=== PATIENT | female | born 1950 | race Caucasian/White ===

== ENCOUNTER 2023-05-04 08:11 | Emergency (ER) | payer MEDICARE, BC, SELFPAY ==
[2023-05-04] VITALS (20 sets, daily range): BP systolic 102–161; BP diastolic 41–76; PULSE 55–71; RESP 18; TEMP 36.4; O2SAT 96–100; BMI 23.8
--- NOTE | 2023-05-04 08:38 | CRLHL7_ITS ---
For Patients: As a result of the Century Cures Act, medical imaging exams and procedure reports are released immediately into your electronic medical record. You may view this report before your referring provider. If you have questions, please contact your health care provider. Indication: Chest pain Technique: Chest 2 views Comparison: Chest x-ray 12/11/2013 Findings/Impression: Cardiovascular and mediastinum: Normal heart size with atherosclerotic calcification. Lungs and pleural spaces: No pleural effusion or pneumothorax. Discoid atelectasis left upper lobe. Bones and soft tissues: No significant findings. Dictated by Marlon Olvera MD @ 05/04/2023 9:42:44 AM (Electronically Signed)
--- NOTE | 2023-05-04 08:41 | ED.CHESTPAIN ---
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 With some radiation to the left side of her neck. She felt pressure associated with this, she also feels some shortness of breath when she is walking around over the past few weeks. And the chest pain does intensify when she cleans around her house. By stopping and taking a break the chest pain typically and shortness of breath improves. She did not take any medicines for this today, but in the past has taken aspirin. She feels this may have helped a little bit. She has no personal history of any coronary artery disease, has had previous workup for similar symptoms, which have all been negative she feels that this was greater than 5 years ago. She has had the CT calcium test done at [facility], she says she scored to 75. She does not take medicines for high blood pressure, she has no history of diabetes, she does take a low-dose statin. She has a terrible family history of heart disease with her mother having heart issues in her 50s. She is under lot of stress as her Trip had a stroke last year. And has to care for him. No history of tobacco use or drug use. She is currently pain-free. Two initial COVID vaccinations has not received the booster she did not receive influenza this year. Prior episodes: Yes Onset: during rest Pain location: substernal and left chest Pain radiation: neck and jaw/teeth Severity: moderate Quality: tightness, aching and heaviness Relieving factors: rest Risk Factors Coronary artery disease risk factors: hyperlipidemia and family history of CAD before age 50 Thoracic aortic dissection risk factors: none Related Data On Oral Contraceptives: No Home Medications Medication Instructions Recorded Confirmed atorvastatin 20 mg tablet 20 mg PO QPM 05/04/23 05/04/23 vit C 250 mg-vit E 90 mg-zinc 40 1 tab PO BID 05/04/23 05/04/23 mg-copper 1 ap-ryhirm-unoide capsule (PreserVision AREDS-2) Previous Rx's Medication Instructions Recorded nitroglycerin 0.4 mg sublingual 0.4 mg sublingual Q5-15M PRN chest 05/04/23 tablet pain #14 tabs Allergies Allergy/AdvReac Type Severity Reaction Status Date / Time No Known Drug Allergies Allergy Verified 05/04/23 08:25 Review of Systems Status of ROS Reports: 10 or more systems reviewed and unremarkable except as noted in History and below [facility] Social History Smoking Status: Never smoker Do you use any of these nicotine containing products: None How often do you have a drink containing alcohol: never How often do you have six or more drinks on one occasion: Never AUDIT-C Alcohol total score: 0 Non-prescribed substance use: denies use service: No Exam Narrative Exam Narrative: Patient is speaking normally, no problem with slurring words, oriented x3. Head eyes ears nose and throat exam show equal pupils, no scleral icterus, extraocular muscles are normal, no facial droop, speech is normal, trachea normal and midline. Thyroid normal midline palpable not enlarged. Chest shows symmetrical rise bilaterally, normal auscultation with no wheezes, no increased work of breathing, no overt bruising or lesions seen, no tenderness is noted on auscultation. Heart sounds normal with no S3-S4 no murmurs clicks or gallops. Abdomen shows no obvious masses or hepatosplenomegaly, no organomegaly, bowel sounds are normal in all quadrants. No tenderness is noted also in all quadrants. Upper and lower extremities show normal power, normal range of motion, pulses are normal, sensations normal, fine motor movements are normal, pelvis is stable to rocking. Cervical spine shows normal range of motion, and palpably not tender. Thoracic spine shows normal range of motion, and palpably not tender, lumbar spine shows no tenderness to palpation percussion and is otherwise normal range of motion. Skin shows no rashes, petechiae or eccymosis. Normal carotid upstrokes bilaterally with no bruits. She is thin with a normal BMI Const Vital Signs, click to edit/add: Vital Signs - 24 hr 05/04/23 08:18 05/04/23 08:23 05/04/23 08:24 Temperature 97.6 F Pulse Rate 60 62 Pulse Rate [Right Pulse Oximeter] 60 Respiratory Rate 18 Blood Pressure 150/76 H Blood Pressure [Left Upper Arm] 150/76 H Pulse Oximetry 99 100 99 Oxygen Delivery Method Room Air 05/04/23 08:31 05/04/23 08:32 05/04/23 08:37 Temperature Pulse Rate 71 Pulse Rate [Right Pulse Oximeter] Respiratory Rate Blood Pressure 161/74 H Blood Pressure [Left Upper Arm] Pulse Oximetry 100 100 Oxygen Delivery Method 05/04/23 08:45 05/04/23 09:01 05/04/23 09:02 Temperature Pulse Rate 69 65 68 Pulse Rate [Right Pulse Oximeter] Respiratory Rate Blood Pressure 102/41 L Blood Pressure [Left Upper Arm] Pulse Oximetry 100 96 97 Oxygen Delivery Method 05/04/23 09:15 05/04/23 09:30 05/04/23 09:32 Temperature Pulse Rate 60 59 L 59 L Pulse Rate [Right Pulse Oximeter] Respiratory Rate Blood Pressure 145/63 H Blood Pressure [Left Upper Arm] Pulse Oximetry 100 99 98 Oxygen Delivery Method 05/04/23 09:45 05/04/23 10:00 05/04/23 10:02 Temperature Pulse Rate 63 57 L 55 L Pulse Rate [Right Pulse Oximeter] Respiratory Rate Blood Pressure 145/61 H Blood Pressure [Left Upper Arm] Pulse Oximetry 98 99 99 Oxygen Delivery Method 05/04/23 10:15 05/04/23 10:30 05/04/23 10:45 Temperature Pulse Rate 59 L 58 L 61 Pulse Rate [Right Pulse Oximeter] Respiratory Rate Blood Pressure Blood Pressure [Left Upper Arm] Pulse Oximetry 99 96 100 Oxygen Delivery Method Course Reevaluation(s) Time of Reevaluation #1: 09:48 Reevaluation #1: Molly remains pain-free, I explained to her that so far her troponin, CBC, basic metabolic profile of TS, or all negative. Chest x-ray is normal, EKG shows some very mild changes. I think repeating her troponin, trauma getting the results of the D-dimer, and speaking to Cardiology. She was in agreement with this plan. Time of Reevaluation #2: 11:03 Reevaluation #2: Patient still remains pain-free, I discussed with her, her 2nd troponin being negative, D-dimer negative, and my conversation with Dr. bernal from cardiology at [facility]. Suggestion is for at this point CT angiogram, diagnosis would be chest pain and stable angina. We will put her on daily aspirin, 81 mg and give her prescription for nitroglycerin that she can use she will return here to the emergency department if she has ongoing symptoms worsening crescendo symptoms, or inability to get pain-free. [facility] will set up a CT angiogram in the next few days, call the patient. Vital Signs Vital signs: Initial Vital Signs Temperature 97.6 F 05/04/23 08:18 Temperature Source Temporal Artery Scan 05/04/23 08:18 Pulse Rate 60 05/04/23 08:18 Pulse Rhythm Regular 05/04/23 08:18 Respiratory Rate 18 05/04/23 08:18 Blood Pressure 150/76 H 05/04/23 08:18 Blood Pressure Mean 100 05/04/23 08:18 Blood Pressure Position Semi-Fowlers 05/04/23 08:18 Pulse Oximetry 99 05/04/23 08:18 Oxygen Delivery Method Room Air 05/04/23 08:18 Vital Signs Temperature 97.6 F 05/04/23 08:18 Pulse Rate 60 05/04/23 08:18 Respiratory Rate 18 05/04/23 08:18 Blood Pressure 150/76 H 05/04/23 08:18 Pulse Oximetry 99 05/04/23 08:18 Oxygen Delivery Method Room Air 05/04/23 08:18 Temperature 97.6 F 05/04/23 08:18 Pulse Rate 61 05/04/23 10:45 Respiratory Rate 18 05/04/23 08:18 Blood Pressure 145/61 H 05/04/23 10:02 Pulse Oximetry 100 05/04/23 10:45 Oxygen Delivery Method Room Air 05/04/23 08:18 Medications Administered Medications: Discontinued Medications Generic Name Dose Route Start Last Admin Trade Name Freq PRN Reason Stop Dose Admin Aspirin 324 mg 05/04/23 08:37 05/04/23 08:43 Aspirin 81 Mg Tab.Chew PO 05/04/23 08:38 324 mg ONCE ONE Administration Sodium Chloride 1,000 mls @ 1,000 mls/hr 05/04/23 08:45 05/04/23 10:00 0.9 % Sodium Chloride 1000 Ml IV 05/04/23 09:44 Infused .Q1H ANNALISA Infusion MDM - Chest Pain MDM Narrative Medical decision making narrative: During the evaluation of this patient I considered multiple differential diagnosis is. The life-threatening differential diagnosis include coronary disease/OR, pulmonary embolism, pneumothorax, pneumonia, and aortic dissection. Other differential diagnosis included but were not limited to pericarditis, myocarditis, chest wall pain, GERD, esophageal rupture, rib fracture contusion, pleurisy, as well as other etiologies. Medical Records Data Attestation: I reviewed the patient's medical records. Medical records narrative: Reviewed records from [facility], CT calcium score coronary 75th percentile, date is May 2020, stress test, done with echo, date May 23 also was negative. EKG was compared with , now there is some ST wave flattening, with inversion of T-waves noted inferiorly and laterally, Lab Data Attestation: I reviewed the patient's lab results. Labs: Lab Results 05/04/23 05/04/23 05/04/23 Range/Units 08:30 08:34 08:34 WBC 5.32 (4.50-11.00) K/uL RBC 4.38 (4.00-5.20) m/uL Hgb 13.8 (12.0-16.0) gm/dL Hct 42.4 (33.0-51.0) % MCV 97 (80-100) fL MCH 32 (26-34) pg MCHC 33 (32-36) gm/dL RDW Coeff of Tomás 11.7 (11.5-15.5) % Plt Count 251 (140-440) K/uL Neut % (Auto) 54.4 (42.0-72.0) % Lymph % (Auto) 35.2 (20-44) % [place] % (Auto) 7.9 (0.0-11.0) % Eos % (Auto) 2.1 (0.0-7.0) % Baso % (Auto) 0.2 (0.0-3.0) % Neut # (Auto) 2.90 (1.7-7.0) K/uL Lymph # (Auto) 1.87 (0.90-2.90) K/uL [place] # (Auto) 0.40 (0.00-0.90) K/UL Eos # (Auto) 0.11 (0.00-0.50) K/uL Baso # (Auto) 0.01 (0.00-0.30) K/uL Abs Immat Gran (auto) 0.01 (0.00-0.30) K/uL Imm/Tot Granulo (auto) 0.2 % INR 0.95 (0.91-1.10) APTT 31 (23-33) Seconds D-Dimer Quant (PE/DVT) 0.29 Cancelled (0.00-0.50) ug/ml Sodium 139 (135-149) mmol/L Potassium 3.9 (3.6-5.1) mmol/L Chloride 105 (96-114) mmol/L Carbon Dioxide 25 (20-32) mmol/L Anion Gap 9 (7-15) mEq/L BUN 19 (7-30) mg/dL Creatinine 0.7 (0.5-1.5) mg/dL Estimated Creat Clear 40.22 Estimated GFR 92 ml/min Glucose 103 (60-115) mg/dL Calcium 9.3 (8.4-10.6) mg/dL Total Bilirubin 0.5 (0.1-1.5) mg/dL Direct Bilirubin 0.0 (0.0-0.5) mg/dL AST 29 (12-35) U/L ALT 21 (4-35) U/L Alkaline Phosphatase 116 (40-150) U/L C-Reactive Protein 0.6 (0.5-1.0) mg/dL NT-Pro-B Natriuret Pep 401 pg/mL Total Protein 7.7 (6.0-8.3) g/dL Albumin 4.5 (3.3-5.0) g/dL TSH 2.830 (0.270-4.20) uIU/mL SARS-CoV-2 (PCR) Negative SARS-CoV-2 (Negative) Influenza Type A (PCR) Negative PCR FLU A (Negative) Influenza Type B (PCR) Negative PCR FLU B (Negative) RSV (PCR) Negative PCR RSV (Negative) POC Troponin I 0.00 L (0.01-0.04) ng/ml 05/04/23 Range/Units 09:57 WBC (4.50-11.00) K/uL RBC (4.00-5.20) m/uL Hgb (12.0-16.0) gm/dL Hct (33.0-51.0) % MCV (80-100) fL MCH (26-34) pg MCHC (32-36) gm/dL RDW Coeff of Tomás (11.5-15.5) % Plt Count (140-440) K/uL Neut % (Auto) (42.0-72.0) % Lymph % (Auto) (20-44) % [place] % (Auto) (0.0-11.0) % Eos % (Auto) (0.0-7.0) % Baso % (Auto) (0.0-3.0) % Neut # (Auto) (1.7-7.0) K/uL Lymph # (Auto) (0.90-2.90) K/uL [place] # (Auto) (0.00-0.90) K/UL Eos # (Auto) (0.00-0.50) K/uL Baso # (Auto) (0.00-0.30) K/uL Abs Immat Gran (auto) (0.00-0.30) K/uL Imm/Tot Granulo (auto) % INR (0.91-1.10) APTT (23-33) Seconds D-Dimer Quant (PE/DVT) (0.00-0.50) ug/ml Sodium (135-149) mmol/L Potassium (3.6-5.1) mmol/L Chloride (96-114) mmol/L Carbon Dioxide (20-32) mmol/L Anion Gap (7-15) mEq/L BUN (7-30) mg/dL Creatinine (0.5-1.5) mg/dL Estimated Creat Clear Estimated GFR ml/min Glucose (60-115) mg/dL Calcium (8.4-10.6) mg/dL Total Bilirubin (0.1-1.5) mg/dL Direct Bilirubin (0.0-0.5) mg/dL AST (12-35) U/L ALT (4-35) U/L Alkaline Phosphatase (40-150) U/L C-Reactive Protein (0.5-1.0) mg/dL NT-Pro-B Natriuret Pep pg/mL Total Protein (6.0-8.3) g/dL Albumin (3.3-5.0) g/dL TSH (0.270-4.20) uIU/mL SARS-CoV-2 (PCR) (Negative) Influenza Type A (PCR) (Negative) Influenza Type B (PCR) (Negative) RSV (PCR) (Negative) POC Troponin I 0.01 (0.01-0.04) ng/ml Imaging Data Chest x-ray: Attestation: I have reviewed the pertinent imaging results. My impression: No acute changes seen on chest x-ray, Radiologist's impression: Patient: JAHAIRA HOU Facility:?[facility] Patient ID:?[id number] Site Patient ID:?[id number]. Site :?[id number] Study:?XRay Chest CHEST 2 VIEW-05/04/2023 9:07:06 AM Ordering Physician:Anant Luo Final Report: Indication: Chest pain Technique: Chest 2 views Comparison: Chest x-ray 12/11/2013 Findings/Impression: Cardiovascular and mediastinum: Normal heart size with atherosclerotic calcification. Lungs and pleural spaces: No pleural effusion or pneumothorax. Discoid atelectasis left upper lobe. Bones and soft tissues: No significant findings. Dictated by Marlon Olvera MD @ 05/04/2023 9:42:44 AM (Electronic Signature) ECG Data Attestation: I personally reviewed and interpreted this ECG as follows: ECG interpretation date: 05/04/23 Ischemic changes: other Interpretation: Sinus rhythm with nonspecific ST wave flattening noted laterally inferiorly. Rate is 62, QT and QTC are normal. Will need to review with old EKGs that we currently do not have. Repeat EKG is done, this shows some improvement of her lateral and inferior ST wave abnormalities. From the original EKG. Discharge Plan Discharge Clinical Impression: Chest pain Patient Disposition: Home, Self-Care Condition: Stable Instructions: Chest Pain (DC), Angiogram (DC) Additional Instructions: Home rest, aspirin 81 mg a day. Cardiology at [facility] set up a CT angiogram, they will call you on your cell number, if you do not hear back from them later today, please call back. Obviously if you have increasing chest pain, with exertion or does not go way, then I recommend that you take the nitroglycerin that I sent in. Make Sure you are sitting down, and if this does not relieve your chest discomfort then call 911. Activity Level: Light activity Discharge Diet: Regular Prescriptions: New nitroglycerin 0.4 mg tablet, sublingual 0.4 mg sublingual Q5-15M PRN (Reason: chest pain) Qty: 14 0RF Rx Instructions: do not exceed 3 doses per episode No Action atorvastatin 20 mg tablet 20 mg PO QPM PreserVision AREDS-2 250-90-40-1 mg capsule 1 tab PO BID Follow Up/Referrals: Jacey Encinas MD [Referring] - Stand Alone Forms: Official[employer] Info Instructions
[2023-05-04] MEDS: ASPIRIN 81 MG TAB.CHEW 324 MG PO (08:43)
[2023-05-04] MEDS: 0.9 % SODIUM CHLORIDE 1000 ml 1,000 ML IV (08:44)
[2023-05-04 08:54] LABS: Basophils Absolute Auto 0.01 K/uL (0.00-0.30); Basophils Percent Auto 0.2 % (0.0-3.0); Eosinophils Absolute Auto 0.11 K/uL (0.00-0.50); Eosinophils Percent Auto 2.1 % (0.0-7.0); Hematocrit 42.4 % (33.0-51.0); Hemoglobin* 13.8 gm/dL (12.0-16.0); Immature Granulocytes Abs Auto 0.01 K/uL (0.00-0.30); Immature Granulocytes Pct Auto 0.2 %; Lymphocytes Absolute Auto 1.87 K/uL (0.90-2.90); Lymphocytes Percent Auto 35.2 % (20-44); Mean Corpuscular HGB Conc 33 gm/dL (32-36); Mean Corpuscular Hemoglobin 32 pg (26-34); Mean Corpuscular Volume 97 fL (80-100); Monocytes Percent Auto 7.9 % (0.0-11.0); Neutrophils Percent Auto 54.4 % (42.0-72.0); Platelet Count* 251 K/uL (140-440); RDW Coefficient of Variation % 11.7 % (11.5-15.5); Red Blood Count 4.38 m/uL (4.00-5.20); White Blood Count* 5.32 K/uL (4.50-11.00)
[2023-05-04 09:10] LABS: Chloride* 105 mmol/L (96-114)
[2023-05-04 09:11] LABS: Albumin* 4.5 g/dL (3.3-5.0); Sodium* 139 mmol/L (135-149)
[2023-05-04 09:12] LABS: Potassium* 3.9 mmol/L (3.6-5.1)
[2023-05-04 09:13] LABS: Creatinine* 0.7 mg/dL (0.5-1.5); Est. Creatinine Clearance* 40.22; Estimated Glomerular Filt Rate 92 ml/min
[2023-05-04 09:14] LABS: Alanine Aminotransferase* 21 U/L (4-35); Alkaline Phosphatase* 116 U/L (40-150); Anion Gap 9 mEq/L (7-15); Aspartate Amino Transferase* 29 U/L (12-35); Bilirubin Total* 0.5 mg/dL (0.1-1.5); Blood Urea Nitrogen* 19 mg/dL (7-30); Carbon Dioxide* 25 mmol/L (20-32); Total Protein* 7.7 g/dL (6.0-8.3)
[2023-05-04 09:15] LABS: Calcium* 9.3 mg/dL (8.4-10.6); Glucose* 103 mg/dL (60-115); Slide Review Reflex No
[2023-05-04 09:17] LABS: C Reactive Protein* 0.6 mg/dL (0.5-1.0)
[2023-05-04 09:23] LABS: INR 0.95 (0.91-1.10); NT Pro B Type NatriureticPept* 401 pg/mL; Prothrombin Time 13.2 Seconds
[2023-05-04 09:24] LABS: Partial Thromboplastin Time* 31 Seconds (23-33)
[2023-05-04 09:27] LABS: D Dimer Quantitative* 0.29 ug/ml (0.00-0.50)
[2023-05-04 09:38] LABS: PCR FLU A Negative PCR FLU A (Negative); PCR FLU B Negative PCR FLU B (Negative); PCR RSV Negative PCR RSV (Negative)
[2023-05-04 09:45] LABS: SARS PCR* Negative SARS-CoV-2 (Negative)
[2023-05-04 10:37] LABS: Troponin, Point-of-Care* 0.01 ng/ml (0.01-0.04)
== END 2023-05-04 11:17 | disposition home or self-care (01) ==
PROVIDERS: Emergency Provider Family Medicine; PCP Family Medicine
DX: R07.9 Chest pain, unspecified (principal)
CPT/HCPCS: 36415; 71046; 80048; 80076; 83880; 84443; 84484; 85025; 85379; 85610; 85730; 86140; 87631; 93005; 94761; 96360; 99284; 99285; A9270; J7030